=== PATIENT | female | born 1970 | race Caucasian/White ===

== ENCOUNTER 2017-01-30 20:10 | Emergency (ER) | payer OTHER ==
[~2017-01-30] VITALS: Ht 170.2 cm; Wt 81.2 kg
[2017-01-30 20:14] VITALS: BP 158/89
--- NOTE | 2017-01-30 20:25 | NUR ---
TO ER BED 8
--- NOTE | 2017-01-30 20:32 | NUR ---
46 Y/O F W/C/O NUMBNESS TO R ARM AND R SIDE OF NECK, DENIES ANY NUMBNESS TO REST OF BODY R SIDE. SYMETRICAL SMILE, DENIES ANY DIZZINESS. VSS, ON MONITOR, JERMAIN YEN MADE AWARE.
--- NOTE | 2017-01-30 21:00 | NUR ---
PT TAKEN FOR CT SCAN.
[2017-01-30 21:05] LABS: BASOPHILS # (AUTO) 0.3 K/uL (0.00-0.22); EOSINOPHILS # (AUTO) 0.3 K/uL (0-0.4); EOSINOPHILS % (AUTO) 2.8 % (0.0-4.0); HEMATOCRIT 37.5 % (36-48); HEMOGLOBIN 12.4 g/dL (12.0-16.0); LYMPHOCYTES # (AUTO) 2.8 K/uL (2.5-16.5); LYMPHOCYTES % (AUTO) 28.2 % (20.5-51.1); MEAN CORPUSCULAR HEMOGLOBIN 28 pg (27-31); MEAN CORPUSCULAR HGB CONC 33 g/dL (33-37); MEAN CORPUSCULAR VOLUME 85 fL (80-94); MONOCYTES # (AUTO) 0.4 K/uL (0.8-1.0); MONOCYTES % (AUTO) 3.6 % (1.7-9.3); NEUTROPHILS # (AUTO) 6.1 K/uL (1.8-7.7); NEUTROPHILS % (AUTO) 62.4 % (42.2-75.2); PLATELET COUNT (AUTO) 266 K/uL (140-450); RED BLOOD CELL COUNT(AUTO) 4.39 MIL/uL (4.20-5.40); RED CELL DISTRIBUTION WIDTH 12.4 % (11.6-13.7); WHITE BLOOD COUNT (AUTO) 9.9 K/uL (4.8-10.8)
[2017-01-30 21:17] LABS: ANION GAP 11.7 (8-16); CREATININE 0.8 mg/dL (0.6-1.3); POTASSIUM 3.7 mmol/L (3.5-5.1)
[2017-01-30 21:22] LABS: ALBUMIN 3.8 g/dL (3.4-5.0); TOTAL BILIRUBIN 0.2 mg/dL (0.0-1.0)
[2017-01-30 21:34] LABS: CREATINE KINASE MB 0.3 ng/mL (0-3.6)
--- NOTE | 2017-01-30 21:39 | NUR ---
PT RESTING IN BED, AWATING FOR RESUTLS. VSS, NO S/S OF DISTRESS NOTED AT THE MOMENT.
[2017-01-30 22:35] VITALS: BP 117/82
--- NOTE | 2017-01-30 22:35 | NUR ---
Patient discharged BY DR JEFFERSON with v/s stable. Written and verbal after care instructions given and explained BY ER MD. Patient verbalized understanding. Ambulatory with steady gait. All questions addressed prior to discharge. Advised to follow up with PMD OR RETURN TO ER IF CONDITION WORSENS.
== END 2017-01-30 22:35 | disposition home or self-care (01) ==
LOC: MED 20:10
DX: F44.9 Dissociative and conversion disorder, unspecified (principal)
CPT/HCPCS: 36415; 70450; 71010; 80053; 82550; 82553; 83880; 84484; 85025; 93005; 99285

== ENCOUNTER 2018-07-17 14:01 | Emergency (ER) | payer OTHER ==
[~2018-07-17] VITALS: Ht 170.2 cm; Wt 81.8 kg
[2018-07-17 14:08] VITALS: BP 139/86
--- NOTE | 2018-07-17 14:20 | NUR ---
EKG GIVEN TO DR REID, URINE SAMPLE COLLECTED, PT AMBULATES TO BED 4, REPORT GIVEN TO BERENICE NORIEGA
--- NOTE | 2018-07-17 14:24 | NUR ---
47 Y/O F BIB SELF WITH C/O SHARP LT UPPER CHEST PAIN RADIATING HER LT ARM SINCE 1000 THIS MORNING. DENIES VÁZQUEZ, DIZZINESS. PT DENIES N/V/D; SKIN IS INTACT, PINK/WARM/DRY; AAOX4, PERRL, WITH EVEN AND STEADY GAIT; LUNGS CLEAR BL, BREATHING UNLABORED; HR EVEN AND REGULAR, BL PERIPHERAL PULSES PRESENT; BS ACTIVE X4, NO TENDERNESS TO PALPATION, NO HEPATOSPLENOMEGALLY PALPATED, RESONANT TO PERCUSSION; PT STATES 10/10 PAIN AT THIS TIME; VSS; PATIENT POSITIONED FOR COMFORT; HOB ELEVATED; BEDRAILS UP X2; BED DOWN. HX; DENIES RX; DENIES
[2018-07-17] MEDS ORDERED: KETOROLAC 30 MG/ML VIAL IVP ONE (14:25)
--- NOTE | 2018-07-17 14:35 | NUR ---
PHLEB AT BEDSIDE.
--- NOTE | 2018-07-17 14:37 | NUR ---
DR. REID AT BEDSIDE.
[2018-07-17 14:44] LABS: BASOPHILS % (AUTO) 0.5 % (0.0-2.0); EOSINOPHILS # (AUTO) 0.2 K/uL (0-0.4); EOSINOPHILS % (AUTO) 2.5 % (0.0-4.0); HEMATOCRIT 38.4 % (36-48); HEMOGLOBIN 13.2 g/dL (12.0-16.0); LYMPHOCYTES # (AUTO) 2.6 K/uL (2.5-16.5); LYMPHOCYTES % (AUTO) 28.6 % (20.5-51.1); MEAN CORPUSCULAR HEMOGLOBIN 30 pg (27-31); MEAN CORPUSCULAR HGB CONC 34 g/dL (33-37); MONOCYTES # (AUTO) 0.5 K/uL (0.8-1.0); MONOCYTES % (AUTO) 5.9 % (1.7-9.3); NEUTROPHILS # (AUTO) 5.6 K/uL (1.8-7.7); NEUTROPHILS % (AUTO) 62.5 % (42.2-75.2); PLATELET COUNT (AUTO) 243 K/uL (140-450); RED BLOOD CELL COUNT(AUTO) 4.46 MIL/uL (4.20-5.40); RED CELL DISTRIBUTION WIDTH 13.1 % (11.6-13.7)
[2018-07-17 14:53] LABS: ANION GAP 11.5 (8-16); CARBON DIOXIDE 29.5 mmol/L (21-32); CREATININE 0.8 mg/dL (0.6-1.3); TOTAL BILIRUBIN 0.7 mg/dL (0.0-1.0)
--- NOTE | 2018-07-17 15:04 | NUR ---
PT LAUGHING AND TALKING ON CELL PHONE AT THIS TIME
[2018-07-17 15:09] LABS: BARBITURATE, URINE NEG. ng/ml (NEG <=200); BENZODIAZEPINE, URINE NEG. ng/mL (NEG <=200); CANNABINOID, URINE NEG. ng/mL (NEG <=50); COCAINE, URINE NEG. ng/mL (NEG <=300); OPIATE, URINE NEG. ng/mL (NEG <=2000); PHENCYCLIDINE SCREEN,URINE NEG. ng/mL (NEG <=25)
[2018-07-17 15:11] LABS: PROTHROMBIN TIME 9.9 secs (10.8-13.4)
[2018-07-17 15:22] LABS: D-DIMER < 100 ng/ml (0-400)
[2018-07-17 15:33] LABS: APPEARANCE,URINE CLEAR (CLEAR); BILIRUBIN,URINE NEGATIVE (NEGATIVE); BLOOD, URINE NEGATIVE (NEGATIVE); COLOR,URINE YELLOW (YELLOW); LEUKOCYTE ESTERASE ,URINE NEGATIVE (NEGATIVE); NITRITE, URINE NEGATIVE (NEGATIVE); UGLUCOSE NEGATIVE (NEGATIVE)
[2018-07-17 17:06] VITALS: BP 124/71
== END 2018-07-17 17:07 | disposition home or self-care (01) ==
LOC: MED 14:01
DX: M94.0 Chondrocostal junction syndrome [Tietze] (principal)
CPT/HCPCS: 36415; 71045; 80053; 80305; 81003; 81025; 83735; 83880; 84484; 85025; 85379; 85610; 85730; 93005; 96374; 99284; J1885; Q0092